=== PATIENT | female | born 1955 | race Caucasian/White ===

== ENCOUNTER 2016-05-06 23:16 | Emergency (ER) | payer OTHER ==
[~2016-05-06] VITALS: Ht 162.6 cm; Wt 65.9 kg
[~2016-05-06 23:16] MED LIST: CEPHALEXIN500 M1 PO; GLUCOSAMINE500 M1 PO; METHIMAZOLE5 MG PO; PREDNISONE20 MG PO; SOMATULINE DEP120 MG IV
[2016-05-06 23:20] VITALS: TEMP 98.2
[2016-05-07] MEDS ORDERED: PREDNISONE20 MG PO (03:20)
[2016-05-07 04:42] VITALS: BP 137/87; PULSE 79
== END 2016-05-07 04:00 | disposition home or self-care (01) ==
LOC: COL.ER 23:16
DX: T78.3XXA Angioneurotic edema, initial encounter (principal)
CPT/HCPCS: J0171; J1200; J2930; J7030; J7512

== ENCOUNTER → 2016-08-09 | Outpatient (CLI) | payer OTHER | LOC: MC.RAD 08-07 15:40 | DX: Z12.31 Encounter for screening mammogram for malignant neoplasm of breast (principal) ==

== ENCOUNTER → 2016-09-05 | Outpatient (CLI) | payer OTHER | LOC: COL.RAD 08:44 | DX: E22.0 Acromegaly and pituitary gigantism (principal); M89.9 Disorder of bone, unspecified; M89.38 Hypertrophy of bone, other site; E23.6 Other disorders of pituitary gland; D32.0 Benign neoplasm of cerebral meninges | CPT/HCPCS: A9585 ==

== ENCOUNTER → 2016-11-02 | Outpatient (CLI) | payer OTHER | LOC: COL.RAD 07:25 | DX: G93.89 Other specified disorders of brain (principal) | CPT/HCPCS: Q9967 ==

== ENCOUNTER → 2017-09-05 | Outpatient (CLI) | payer OTHER | LOC: MC.RAD 08:32 | DX: Z12.31 Encounter for screening mammogram for malignant neoplasm of breast (principal) ==

== ENCOUNTER 2017-10-13 20:54 | Emergency (ER) | payer OTHER ==
[~2017-10-13] VITALS: Ht 162.6 cm; Wt 68.2 kg
[2017-10-13 20:57] VITALS: TEMP 97.3
[2017-10-13 21:27] LABS: BASO % 0.7 % (0.0-2.0); EOS # 0.2 (0.0-0.7); EOS % 3.6 % (0-4.0); GRAN # 3.8 (1.4-6.5); GRAN % 65.9 % (42.2-75.2); HEMATOCRIT 40.6 % (37.0-47.0); HEMOGLOBIN 13.9 g/dl (12.5-16.0); LYMPH # 1.2 (1.2-3.4); LYMPH % 21.2 % (20.0-51.0); MEAN CELL VOLUME 95 fl (80.0-100.0); MEAN CORPUSCULAR HEMOGLOBIN 33 pg (27.0-31.0); MEAN CORPUSCULAR HGB CONC 34 g/dl (33.0-37.0); MEAN PLATELET VOLUME 11.8 fl (7.4-10.4); MONO # 0.5 (0.1-0.6); MONO % 8.4 % (1.7-9.3); PLATELET COUNT 207 K/mm3 (130-400); RED BLOOD COUNT 4.28 M/mm3 (4.10-5.30); REDCELL DISTRIBUTION WIDTH-CV 12.8 % (11.5-14.5)
[2017-10-13 21:33] LABS: COLLECTION METHOD CLEAN CATCH
[2017-10-13 21:38] LABS: ALANINE AMINOTRANSFERASE 43 U/L (9-52); ALKALINE PHOSPHATASE 98 U/L (50-136); ANION GAP 10 mmol/L (7-16); AST,SGOT 70 U/L (15-37); BILIRUBIN,TOTAL 0.4 mg/dL (0.0-1.0); BLOOD UREA NITROGEN 21 mg/dL (7-17); CALCIUM 9.6 mg/dL (8.4-10.2); CARBON DIOXIDE 26 mmol/L (22-30); CHLORIDE 104 mmol/L (98-107); CREATININE, serum 0.69 mg/dL (0.52-1.25); GLUCOSE 127 mg/dL (74-106); LIPASE 23 U/L (23-300); POTASSIUM 3.6 mmol/L (3.4-5.0); SODIUM 140 mmol/L (137-145)
[2017-10-13 21:38] LABS: PH 7 (5-8); SQUAMOUS EPITHELIAL 0-2 /hpf; URINE APPEARANCE Clear; URINE BACTERIA Rare /hpf; URINE BILIRUBIN Negative (NEGATIVE); URINE BLOOD Negative (NEGATIVE); URINE COLOR Straw; URINE GLUCOSE Negative (NEGATIVE); URINE KETONE Negative (NEGATIVE); URINE LEUKOCYTE ESTERASE Negative (NEGATIVE); URINE NITRATE Negative (NEGATIVE); URINE PROTEIN(semi-quant) Negative (NEGATIVE); URINE RBC None Seen /hpf; URINE UROBILINOGEN Negative (NEGATIVE)
[2017-10-13 21:49] LABS: TROPONIN-I < 0.012 ng/mL (0.000-0.034)
[2017-10-14 00:42] VITALS: BP 135/87; PULSE 64
== END 2017-10-14 00:42 | disposition home or self-care (01) ==
LOC: COL.ER 20:54
PROVIDERS: Emergency Medicine
DX: R10.13 Epigastric pain (principal); E05.90 Thyrotoxicosis, unspecified without thyrotoxic crisis or storm

== ENCOUNTER → 2017-10-16 | Outpatient (CLI) | payer OTHER | LOC: COL.RAD 08:07 | DX: K82.8 Other specified diseases of gallbladder (principal); K80.20 Calculus of gallbladder without cholecystitis without obstruction ==

== ENCOUNTER → 2018-08-29 | Outpatient (CLI) | payer OTHER | LOC: MC.RAD 08:07 | DX: Z12.31 Encounter for screening mammogram for malignant neoplasm of breast (principal) ==

== ENCOUNTER → 2019-06-12 | Outpatient (CLI) | payer OTHER | LOC: COL.RAD 06:57 | DX: I67.82 Cerebral ischemia (principal); E22.0 Acromegaly and pituitary gigantism; M85.2 Hyperostosis of skull; E05.20 Thyrotoxicosis with toxic multinodular goiter without thyrotoxic crisis or storm | CPT/HCPCS: A9585 ==

== ENCOUNTER → 2019-09-04 | Outpatient (CLI) | payer OTHER | LOC: MC.RAD 09:22 | DX: Z12.31 Encounter for screening mammogram for malignant neoplasm of breast (principal); N64.89 Other specified disorders of breast ==

== ENCOUNTER → 2020-10-11 | Outpatient (CLI) | payer OTHER | LOC: MC.RAD 15:52 | DX: Z12.31 Encounter for screening mammogram for malignant neoplasm of breast (principal) ==

== ENCOUNTER → 2021-10-13 | Outpatient (CLI) | payer MEDICARE, OTHER | LOC: MC.RAD 07:07 | DX: Z12.31 Encounter for screening mammogram for malignant neoplasm of breast (principal) ==

== ENCOUNTER 2022-06-02 07:44 | Observation (INO) | payer MEDICARE, OTHER ==
[~2022-06-02] VITALS: Ht 162.6 cm; Wt 63.6 kg
[~2022-06-02 07:44] MED LIST changes: -METHIMAZOLE5 MG PO; +TAPAZOLE5 MG PO
[2022-06-02 08:13] LABS: BASO # 0.1 K/mm3 (0.0-0.2); BASO % 1.1 % (0.0-2.0); EOS # 0.3 K/mm3 (0.0-0.7); GRAN # 3.4 K/mm3 (1.4-6.5); GRAN % 54.2 % (42.2-75.2); HEMATOCRIT 44.6 % (37.0-47.0); HEMOGLOBIN 14.6 g/dl (12.5-16.0); LYMPH # 1.9 K/mm3 (1.2-3.4); LYMPH % 29.8 % (20.0-51.0); MEAN CELL VOLUME 101 fl (80.0-100.0); MEAN CORPUSCULAR HEMOGLOBIN 33 pg (27-31); MEAN CORPUSCULAR HGB CONC 33 g/dl (33.0-37.0); MEAN PLATELET VOLUME 11.5 fl (7.4-10.4); MONO # 0.7 K/mm3 (0.1-0.6); MONO % 10.4 % (1.7-9.3); PLATELET COUNT 259 K/mm3 (130-400); RED BLOOD COUNT 4.44 M/mm3 (4.10-5.30); REDCELL DISTRIBUTION WIDTH-CV 13.2 % (11.5-14.5)
[2022-06-02 08:25] LABS: PROTHROMBIN TIME 11.9 SECONDS (9.7-12.8)
[2022-06-02 08:28] LABS: PARTIAL THROMBOPLASTIN TIME 34.4 SECONDS (26.0-37.0)
[2022-06-02 08:30] LABS: ALBUMIN 3.9 gm/dL (3.4-4.8); BILIRUBIN,TOTAL 0.8 mg/dL (0.2-1.2); CALCIUM 9.9 mg/dL (8.4-10.2); CREATININE, serum 0.97 mg/dL (0.57-1.11); MAGNESIUM 2.2 mg/dL (1.6-2.6); PHOSPHOROUS 2.9 mg/dL (2.3-4.7); POTASSIUM 3.6 mmol/L (3.5-4.5); TOTAL PROTEIN 7.3 gm/dL (6.2-8.1)
[2022-06-02 08:37] LABS: TROPONIN-I 0.028 ng/mL (0.00-0.033)
[2022-06-02 09:18] LABS: COLLECTION METHOD CLEAN CATCH
[2022-06-02 09:28] LABS: MUCOUS Present (NOT PRESENT); SQUAMOUS EPITHELIAL 0-2 /hpf (0-10); URINE BACTERIA None Seen /hpf (NONE SEEN); URINE RBC 0-2 /hpf (0-2); URINE WBC 0-2 /hpf (0-2)
[2022-06-02 09:33] LABS: URINE APPEARANCE Clear (CLEAR/HAZY); URINE BLOOD TRACE-INTACT (NEGATIVE); URINE COLOR Yellow (YELLOW); URINE GLUCOSE Negative (NEGATIVE); URINE KETONE Negative (NEGATIVE); URINE NITRATE Negative (NEGATIVE); URINE PROTEIN(semi-quant) Negative (NEGATIVE); URINE UROBILINOGEN 0.2 E.U/dL (0.2-1.0)
[2022-06-02] MEDS ORDERED: ALLEGRA 180MG180 MG PO (10:25)
[2022-06-02] MEDS ORDERED: SINGULAIR 110 MG/TAB PO (10:25)
[2022-06-02] MEDS ORDERED: PEPCID 20MG TAB20 MG PO (10:26)
[2022-06-02] MEDS ORDERED: VITAMIN D31000 I1 PO (10:26)
[2022-06-02] MEDS ORDERED: RECLAST5 MG/100 M IV (10:28)
[2022-06-02] MEDS ORDERED: CALCIUM WITH D31 CTB (10:59)
[2022-06-02 11:05] VITALS: BP 155/76; PULSE 64; TEMP 97.6
[2022-06-02 11:28] LABS: CHOLESTEROL RISK RATIO 4.3
--- NOTE | 2022-06-02 14:26 | NUR ---
PATIENT AWAKE AND ALERT, RESTING IN BED. NO CHANGE TO STROKE SCALE ASSESSMENT. PATIENT DENIES ANY NEEDS OR COMPLAINTS AT THIS TIME. CALL LIGHT WITH IN REACH.
[2022-06-02 15:25] VITALS: BP 146/75; PULSE 63; TEMP 98.5
--- NOTE | 2022-06-02 18:07 | NUR ---
PATIENTS FAMILY/DAUGHTER UPDATED FREQUENTLY THIS SHIFT.
--- NOTE | 2022-06-02 18:13 | NUR ---
PATIENT AWAKE AND ALERT, RESTING IN BED. PATIENT DENIES ANY NEEDS OR COMPLAINTS AT THIS TIME. PATIENTS AT BEDSIDE. CALL LIGHT WITH IN REACH.
[2022-06-02 20:18] VITALS: BP 131/78; PULSE 65; TEMP 97.7
--- NOTE | 2022-06-02 21:30 | NUR ---
PT ASKED TO HAVE HER BRING HER NATAN FROM HOME. PT STATED SHE WOULD JUST HAVE HER BRING HER NATAN IN THE MORNING. PT FELT SHE COULD DO WITHOUT IT FOR TONIGHT. CALL LIGHT WITHIN REACH.
[2022-06-02 23:00] VITALS: BP 139/72; PULSE 59; TEMP 98.4
[2022-06-03 03:38] VITALS: BP 110/65; PULSE 66; TEMP 98.1
[2022-06-03 06:25] LABS: BASO # 0.1 K/mm3 (0.0-0.2); EOS # 0.2 K/mm3 (0.0-0.7); EOS % 3.8 % (0.0-4.0); GRAN # 2.9 K/mm3 (1.4-6.5); GRAN % 57.3 % (42.2-75.2); HEMATOCRIT 40.5 % (37.0-47.0); HEMOGLOBIN 13.8 g/dl (12.5-16.0); LYMPH # 1.3 K/mm3 (1.2-3.4); LYMPH % 26.6 % (20.0-51.0); MEAN CELL VOLUME 97 fl (80.0-100.0); MEAN CORPUSCULAR HEMOGLOBIN 33 pg (27-31); MEAN CORPUSCULAR HGB CONC 34 g/dl (33.0-37.0); MEAN PLATELET VOLUME 11.7 fl (7.4-10.4); MONO # 0.6 K/mm3 (0.1-0.6); MONO % 11.1 % (1.7-9.3); PLATELET COUNT 245 K/mm3 (130-400); RED BLOOD COUNT 4.19 M/mm3 (4.10-5.30); REDCELL DISTRIBUTION WIDTH-CV 13.2 % (11.5-14.5)
[2022-06-03 06:38] LABS: ALBUMIN 3.6 gm/dL (3.4-4.8); CALCIUM 9.6 mg/dL (8.4-10.2); CREATININE, serum 0.81 mg/dL (0.57-1.11); MAGNESIUM 2.3 mg/dL (1.6-2.6); PHOSPHOROUS 2.7 mg/dL (2.3-4.7)
[2022-06-03 07:59] VITALS: BP 124/67; PULSE 67; TEMP 98.4
--- NOTE | 2022-06-03 09:25 | NUR ---
Pt awake and sitting in chair. at bedside. Morning medications administered per eMAR. Shift assessment completed. VSS. Neuro checks completed with minor RUE/RLE weakness noted & R pupil slightly dilated in comparison to L pupil. INT in L AC patent, no edema or redness. Denies c/o pain at this time. Call light within reach.
--- NOTE | 2022-06-03 10:34 | NUR ---
SW met with patient to complete intake. Patient states that she lives in [facility] with her spouse Olman Velasquez [phone]. Patient states that she has not previously utilized a walker but has been since she has been admitted. Patient provides she is independent with ADL's and does not utilize HH services at this time. PCP is currently Dr. Joe Jovel, pharmacy is [facility]. DPOA/HC is spouse. Patient plans to return to her home upon DC. SW will continue to follow. DC plan: home.
[2022-06-03 12:50] VITALS: BP 133/84; PULSE 69; TEMP 98.6
[2022-06-03 15:33] VITALS: BP 143/83; PULSE 62; TEMP 98.2
[2022-06-03 20:34] VITALS: BP 150/78; PULSE 66; TEMP 97.4
[2022-06-04 00:11] VITALS: BP 115/74; PULSE 61; TEMP 98.1
--- NOTE | 2022-06-04 00:18 | NUR ---
Pt assessment finished at 2144. All medications given and swallowed without any complications. During assessment some weakness notice on RUE and RLE. Right pupil is also more dilated than left one. Pt reporting that she is not fully steady when standing up, and continue feeling weak on the right side of her body. Pt is A&Ox4. LAC is CDI. Belongings and call light are within reach.
[2022-06-04 03:28] VITALS: BP 108/58; PULSE 64; TEMP 97.6
[2022-06-04 06:38] LABS: BASO # 0.1 K/mm3 (0.0-0.2); BASO % 0.9 % (0.0-2.0); EOS # 0.3 K/mm3 (0.0-0.7); GRAN % 56.3 % (42.2-75.2); HEMATOCRIT 41.7 % (37.0-47.0); HEMOGLOBIN 13.6 g/dl (12.5-16.0); LYMPH # 1.4 K/mm3 (1.2-3.4); LYMPH % 26.6 % (20.0-51.0); MEAN CELL VOLUME 101 fl (80.0-100.0); MEAN CORPUSCULAR HEMOGLOBIN 33 pg (27-31); MEAN CORPUSCULAR HGB CONC 33 g/dl (33.0-37.0); MEAN PLATELET VOLUME 11.8 fl (7.4-10.4); MONO # 0.6 K/mm3 (0.1-0.6); PLATELET COUNT 226 K/mm3 (130-400); RED BLOOD COUNT 4.14 M/mm3 (4.10-5.30); REDCELL DISTRIBUTION WIDTH-CV 13.2 % (11.5-14.5)
[2022-06-04 06:44] LABS: ALBUMIN 3.6 gm/dL (3.4-4.8); CALCIUM 9.7 mg/dL (8.4-10.2); CREATININE, serum 0.79 mg/dL (0.57-1.11); MAGNESIUM 2.2 mg/dL (1.6-2.6); POTASSIUM 3.9 mmol/L (3.5-4.5)
[2022-06-04 08:17] VITALS: BP 130/73; PULSE 69; TEMP 98.4
--- NOTE | 2022-06-04 09:30 | NUR ---
Pt awake and sitting in chair. Morning medications administered by RN student. Shift assessment completed. Neuro checks completed. Telemetry remains on. INT in L AC patent, no edema or redness. Denies c/o pain. at bedside. No furthe request at this time. Call light within reach.
[2022-06-04] MEDS ORDERED: PLAVIX 75MG TAB75 MG PO (09:34)
[2022-06-04] MEDS ORDERED: LIPITOR 40MG TA40 MG PO (09:35)
[2022-06-04] MEDS ORDERED: ASPIRIN E.C. 8181 MG PO (09:35)
--- NOTE | 2022-06-04 09:40 | NUR ---
Initial visit attempt; Patient out of room, Legal Technician ministered to ; Olman discussing his preparation to take her home. Legal Technician offered God's blessings and will keep "Mely" in her prayers and hopefully get to pray with her before she is discharged home.
[2022-06-04 11:56] VITALS: BP 130/80; PULSE 84
--- NOTE | 2022-06-04 13:56 | NUR ---
Pt discharge instructions given at this time. All questions answered. INT in L AC discontinued with catheter tip intact. Pt escorted out of facility via wheelchair.
== END 2022-06-04 14:00 | disposition home or self-care (01) ==
LOC: COL.ER 07:44 → MEDICAL 09:45
PROVIDERS: Emergency Medicine; ADMIT Internal Medicine
DX: G45.9 Transient cerebral ischemic attack, unspecified (principal); E03.9 Hypothyroidism, unspecified; J30.2 Other seasonal allergic rhinitis; E22.0 Acromegaly and pituitary gigantism; D32.9 Benign neoplasm of meninges, unspecified; I13.10 Hypertensive heart and chronic kidney disease without heart failure, with stage 1 through stage 4 chronic kidney disease, or unspecified chronic kidney disease; I34.0 Nonrheumatic mitral (valve) insufficiency; Z20.822 Contact with and (suspected) exposure to COVID-19; E78.00 Pure hypercholesterolemia, unspecified; Z79.890 Hormone replacement therapy; Z79.899 Other long term (current) drug therapy
CPT/HCPCS: A9575; G0378; J1650; Q9967

== ENCOUNTER 2022-06-25 13:30 | Outpatient (RCR) | payer MEDICARE, OTHER ==
[~2022-06-25 13:30] MED LIST changes: +ALLEGRA 180MG180 MG PO; +ASPIRIN E.C. 8181 MG PO; +CALCIUM WITH D31 CTB; +LIPITOR 40MG TA40 MG PO; +PEPCID 20MG TAB20 MG PO; +PLAVIX 75MG TAB75 MG PO; +RECLAST5 MG/100 M IV; +SINGULAIR 110 MG/TAB PO; +VITAMIN D31000 I1 PO
== END 2022-07-06 | disposition home or self-care (01) ==
LOC: WSOT
DX: I69.359 Hemiplegia and hemiparesis following cerebral infarction affecting unspecified side (principal)

== ENCOUNTER 2022-07-02 15:00 | Outpatient (RCR) | payer MEDICARE, OTHER | END 2022-07-06 | disposition home or self-care (01) | LOC: WSPT | DX: I63.89 Other cerebral infarction (principal) ==

== ENCOUNTER → 2022-07-06 | Outpatient (CLI) | payer MEDICARE, OTHER ==
[~2022-07-06] VITALS: Ht 162.7 cm; Wt 65.1 kg
[2022-07-06 13:00] VITALS: BP 124/72; PULSE 68; TEMP 98.3
[2022-07-06 13:27] LABS: BASO % 0.6 % (0.0-2.0); EOS # 0.2 K/mm3 (0.0-0.7); EOS % 3.9 % (0.0-4.0); GRAN # 3.5 K/mm3 (1.4-6.5); GRAN % 64.7 % (42.2-75.2); HEMATOCRIT 42.3 % (37.0-47.0); HEMOGLOBIN 14.4 g/dl (12.5-16.0); LYMPH # 1.1 K/mm3 (1.2-3.4); MEAN CELL VOLUME 98 fl (80.0-100.0); MEAN CORPUSCULAR HEMOGLOBIN 33 pg (27-31); MEAN CORPUSCULAR HGB CONC 34 g/dl (33.0-37.0); MEAN PLATELET VOLUME 11.9 fl (7.4-10.4); MONO # 0.5 K/mm3 (0.1-0.6); MONO % 9.6 % (1.7-9.3); PLATELET COUNT 205 K/mm3 (130-400); RED BLOOD COUNT 4.33 M/mm3 (4.10-5.30); REDCELL DISTRIBUTION WIDTH-CV 12.7 % (11.5-14.5)
[2022-07-06 13:35] LABS: INR 1.1 (0.8-3.0); PROTHROMBIN TIME 12.2 SECONDS (9.7-12.8)
[2022-07-06 13:42] LABS: CALCIUM 9.4 mg/dL (8.4-10.2); CREATININE, serum 0.78 mg/dL (0.57-1.11); POTASSIUM 3.9 mmol/L (3.5-4.5)
[2022-07-06 15:00] VITALS: BP 141/81; PULSE 57
[2022-07-06 15:15] VITALS: BP 145/81; PULSE 57
[2022-07-06 15:30] VITALS: BP 154/90; PULSE 64
[2022-07-06 15:45] VITALS: BP 142/88; PULSE 60
--- NOTE | 2022-07-06 15:53 | NUR ---
Discharge instructions given to pt.pt verbalizes understanding.
--- NOTE | 2022-07-06 16:16 | NUR ---
Pt escorted out via wheelchair by this nurse.
== END ==
LOC: COL.RAD 06-25 07:00
PROVIDERS: Internal Medicine Cardiovascular Disease
DX: I63.9 Cerebral infarction, unspecified (principal); E78.5 Hyperlipidemia, unspecified
CPT/HCPCS: J2704

== ENCOUNTER → 2023-10-29 | Outpatient (CLI) | payer MEDICARE, OTHER | LOC: MC.RAD 12:40 | DX: Z12.31 Encounter for screening mammogram for malignant neoplasm of breast (principal) ==